=== PATIENT | female | born 1980 | race Caucasian/White ===

== ENCOUNTER 2024-04-15 22:34 | Emergency (ER) | payer OTHER, SELFPAY ==
[2024-04-15 22:51] VITALS: BP 170/110; PULSE 115; TEMP 36.8; O2SAT 98; BMI 40.7
--- NOTE | 2024-04-15 22:55 | PC.NURSE ---
this patient complains of abdomen pain onset today around 2:30 pm while sitting at work, she rates her pain 6/10
--- NOTE | 2024-04-15 22:59 | ED.ABDPAIN1 ---
HPI - Abdominal Pain General Chief Complaint: Abdominal Pain Stated Complaint: ABDOMINAL PAIN Time Seen by Provider: 04/15/24 22:41 Source: patient Mode of arrival: walk-in Limitations: no limitations History of Present Illness HPI narrative: This 44-year-old female who has had 2 C-sections otherwise no abdominal surgeries but does have a history of kidney stones presents for evaluation of generalized abdominal pain. She also has some low back pain but thinks this is from the cramping nature from her abdominal pain and muscle spasms in her back. The patient points to her entire abdomen stating that she is having pain that is cramping in nature coming in waves since around 2 PM. She has had some loose stool and nausea but no vomiting. She does take omeprazole on a daily basis. She has not had a fever but has had some chills. She denies any chest pain or shortness of breath. She does not smoke. Related Data Home Medications ?Medication ?Instructions ?Recorded ?Confirmed No Known Home Medications 04/15/24 04/15/24 Allergies Allergy/AdvReac Type Severity Reaction Status Date / Time No Known Drug Allergies Allergy Verified 04/15/24 22:50 Review of Systems ROS Status of ROS 10 or more systems reviewed and unremarkable except as noted in history and below [facility] Medical History (Updated 04/16/24 @ 00:56 by Brooklynn Astudillo MD) IBS (irritable bowel syndrome) ?K58.9 - Irritable bowel syndrome, unspecified (ICD-10) Social History Little interest or pleasure in doing things: not at all Feeling down, depressed, or hopeless: not at all Exam Narrative Exam Narrative: Vital signs and Nursing Notes reviewed: Patient is afebrile, she is tachycardic with a pulse of 115 her blood pressure is elevated at 170/110, she is not hypoxic with pulse ox of 98% on room air General: Awake, alert, oriented, uncomfortable appearing female, she is rubbing her entire abdomen, no respiratory distress, no active vomiting HEENT: Normocephalic atraumatic, mucous membranes are moist and pink, eyes are clear, normal conjunctiva, vision is grossly intact, posterior pharynx is normal in appearance. Neck: Supple, no meningeal signs, no anterior or posterior cervical lymphadenopathy Chest: Lungs are clear to auscultation with good air entry, there is no wheezing rhonchi or rales appreciated no accessory muscle use, patient is speaking in complete sentences-no chest wall tenderness to palpation CVS: Regular rate and rhythm S1-S2, no murmurs rubs or gallops, pulses are brisk and equal bilaterally ABD: Soft, nondistended, diffusely tender, patient localizes to the epigastrium left upper quadrant and left lower quadrant. There is negative McBurney's point tenderness. Negative Rovsing sign. Extremities: Moving all extremities, no lower extremity tenderness or swelling noted, negative Homans' sign, pulses are brisk and equal bilaterally Skin: Normal in appearance without rash,pallor, petechiae or purpura Neuro: No focal deficits Constitutional Vital Signs, click to edit/add: Last Vital Signs Temp 98.3 F 04/16/24 00:18 Pulse 88 04/16/24 00:30 Resp 18 04/16/24 00:30 BP 139/87 04/16/24 00:30 Pulse Ox 100 04/16/24 00:30 O2 Del Method Room Air 04/15/24 22:51 Course Vital Signs Vital signs: Vital Signs Temperature 98.3 F 04/15/24 22:51 Pulse Rate 115 H 04/15/24 22:51 Respiratory Rate 19 04/15/24 22:51 Blood Pressure 170/110 H 04/15/24 22:51 Pulse Oximetry 98 04/15/24 22:51 Oxygen Delivery Method Room Air 04/15/24 22:51 Temperature 98.3 F 04/16/24 00:18 Pulse Rate 88 04/16/24 00:30 Respiratory Rate 18 04/16/24 00:30 Blood Pressure 139/87 04/16/24 00:30 Pulse Oximetry 100 04/16/24 00:30 Oxygen Delivery Method Room Air 04/15/24 22:51 MDM - Abdominal Pain MDM Narrative Medical decision making narrative: This 44-year-old female who has had 2 C-sections otherwise no abdominal surgeries in the past presents for evaluation of lower abdominal pain that started earlier in the day. She has had some soft stool but no bienvenido diarrhea or vomiting. She has not had a fever. Upon arrival she was shaking and pain in her abdomen was diffusely tender with localization in the epigastrium left upper quadrant and left lower quadrant. An IV was placed and she was medicated with IV fluids, Zofran, Toradol and morphine. Routine labs are ordered and are reviewed. Her test is negative. Her white count is mildly elevated at 13.2. Potassium is mildly low at 3.4. Liver function tests are normal. Lipase is normal. On reevaluation she is resting much more comfortably. CT scan of the abdomen pelvis was ordered and shows dilated loops of bowel without signs of bowel obstruction and is otherwise normal. The results of the scan and the patient's labs were discussed with her. She is feeling better at this time. She will be discharged home with a prescription for Zofran and Bentyl after being given a dose of Bentyl in the emergency department. She was encouraged to drink plenty of fluids and return to the emergency department for worsening symptoms, inability to pass gas or have a bowel movement, intractable vomiting, worsening abdominal pain or any concerns. Medical Records Medical records narrative: [place] [address] CT Scan Report Signed Patient: BERTRAND ARZOLA MR#: [id number] : 1980 Acct:[id number] Age/Sex: 44 / F ADM Date: 04/15/24 Loc: ER Attending Dr: Ordering Physician: Brooklynn Astudillo Date of Service: 04/16/24 Procedure(s): CT abdomen pelvis w con Accession Number(s): [id number] cc: MARIELA PRICE ~ [facility] [place] [id number] Patient Name: BERTRAND ARZOLA MRN: [id number] date: 1980 Sex: F Assigned Patient Location: ER Current Patient Location: ER Accession/Order Number: [id number] Exam Date: 04/16/2024 00:01 Report Date: 04/16/2024 00:40 At the request of: BROOKLYNN ASTUDILLO Procedure: CT abdomen pelvis w con EXAMINATION: CT abdomen pelvis w con HISTORY: upper and lower abd pain COMPARISON: No relevant comparison available. TECHNIQUE: Axial, Coronal, and Sagittal images were obtained without and/or with IV contrast as indicated by examination type. Dose reduction techniques were achieved by using automated exposure control and/or adjustment of mA and/or kV according to patient size and/or use of iterative reconstruction technique. FINDINGS: LUNG BASES: No visible pulmonary or pleural disease. LIVER: No enlargement, atrophy, suspicious density, or significant focal lesion. BILIARY: No dilatation or calcification. PANCREAS: No lesion, fluid collection, or abnormal duct dilatation. SPLEEN: No enlargement or focal lesion. ADRENALS: No mass or enlargement. KIDNEYS: No mass, obstruction, or calcification. BOWEL/MESENTERY: Fluid-filled loops of proximal and mid small bowel with some loops distended up to 3.3 cm. Gradual tapering to normal caliber within distal small bowel. No appreciable wall thickening or inflammatory changes. AORTA/VASCULAR: No aneurysm or dissection. RETROPERITONEUM: No mass or adenopathy. LYMPH NODES: No adenopathy. URINARY BLADDER: No visible focal wall thickening, lesion, or calculus. PELVIC ORGANS: No visible mass. Pelvic organs appropriate for patient age. ABDOMINAL WALL: Small fat filled right inguinal hernia without strangulation. BONES: No bony lesion or fracture. OTHER: Negative. CT/CT abdomen pelvis w con IMPRESSION: 1. Fluid-filled mildly distended loops of small bowel without appreciable obstruction. Possible enteritis. Electronically authenticated by: JENNIFER GARCIA Date: 04/16/2024 00:4 Lab Data Labs: Lab Results 04/15/24 Range/Units 23:10 WBC 13.2 H (4.0-11.0) 10^3/uL RBC 4.80 (4.20-5.40) 10^6/uL Hgb 14.2 (12.0-16.0) g/dL Hct 41.2 (36.0-48.0) % MCV 85.8 (81.0-99.0) fL MCH 29.6 (26.7-34.0) pg MCHC 34.5 (29.9-35.2) g/dL RDW 12.4 (11.0-15.0) % Plt Count 318 (150-450) 10^3/uL MPV 9.3 L (9.5-13.5) fL Neut % (Auto) 79.1 H (43.0-75.0) % Lymph % (Auto) 13.8 L (20.5-60.0) % [place] % (Auto) 5.1 (1.7-12.0) % Eos % (Auto) 1.4 (0.9-7.0) % Baso % (Auto) 0.3 (0.2-2.0) % Neut # (Auto) 10.5 H (1.4-6.5) 10^3/uL Lymph # (Auto) 1.8 (1.2-3.8) 10^3/uL [place] # (Auto) 0.7 (0.3-0.8) 10^3/uL Eos # (Auto) 0.2 (0.0-0.7) 10^3/uL Baso # (Auto) 0.0 (0.0-0.1) 10^3/uL Abs Immat Gran (auto) 0.04 H (0.00-0.03) 10^3/uL Imm/Tot Granulo (auto) 0.3 (0.0-0.5) % Sodium 139 (136-145) mmol/L Potassium 3.4 L (3.5-5.1) mmol/L Chloride 104 (98-107) mmol/L Carbon Dioxide 26.5 (21.0-32.0) mmol/L Anion Gap 11.9 BUN 6.0 L (7.0-18.0) mg/dL Creatinine 1.02 (0.55-1.02) mg/dL Est GFR ( Amer) >60 (>=60 mL/min/1.73m^2) Est GFR (Non-Af Amer) 59 L (>=60 mL/min/1.73m^2) BUN/Creatinine Ratio 5.9 Glucose 102 (74-106) mg/dL Lactate 1.7 (0.4-2.0) mmol/L Calcium 9.2 (8.5-10.1) mg/dL Total Bilirubin 0.5 (0.2-1.0) mg/dL AST 21 (15-37) U/L ALT 39 (14-59) U/L Alkaline Phosphatase 110 (46-116) U/L Total Protein 7.4 (6.4-8.2) g/dL Albumin 3.9 (3.4-5.0) g/dL Globulin 3.5 g/dL Albumin/Globulin Ratio 1.1 Lipase 28.0 (16.0-77.0) U/L Serum HCG, Qual Negative (NEGATIVE) Discharge Plan Discharge Chief Complaint: Abdominal Pain Clinical Impression: Abdominal pain, Enteritis Patient Disposition: Home, Self-Care Time of Disposition Decision: 00:56 Condition: Good Prescriptions / Home Meds: No Action No Known Home Medications Print Language: German Instructions: Abdominal Pain (ED), Enteritis (ED) Referrals: MARIELA PRICE [Primary Care Provider] - 1 week
[2024-04-15 23:21] LABS: Basophils Percent Auto 0.3 % (0.2-2.0); Eosinophils Absolute Auto 0.2 10^3/uL (0.0-0.7); Eosinophils Percent Auto 1.4 % (0.9-7.0); Hematocrit 41.2 % (36.0-48.0); Hemoglobin 14.2 g/dL (12.0-16.0); Immature Granulocytes Abs Auto 0.04 10^3/uL (0.00-0.03); Immature Granulocytes Pct Auto 0.3 % (0.0-0.5); Lymphocytes Absolute Auto 1.8 10^3/uL (1.2-3.8); Lymphocytes Percent Auto 13.8 % (20.5-60.0); Mean Corpuscular HGB Conc 34.5 g/dL (29.9-35.2); Mean Corpuscular Hemoglobin 29.6 pg (26.7-34.0); Mean Corpuscular Volume 85.8 fL (81.0-99.0); Mean Platelet Volume 9.3 fL (9.5-13.5); Monocytes Absolute Auto 0.7 10^3/uL (0.3-0.8); Monocytes Percent Auto 5.1 % (1.7-12.0); Neutrophils Absolute Auto 10.5 10^3/uL (1.4-6.5); Neutrophils Percent Auto 79.1 % (43.0-75.0); Platelet Count 318 10^3/uL (150-450); Red Cell Distribution Width 12.4 % (11.0-15.0); White Blood Count 13.2 10^3/uL (4.0-11.0)
[2024-04-15] MEDS: 0.9 % SODIUM CHLORIDE 1,000 ML 1000 ML IV (23:25)
[2024-04-15] MEDS: ONDANSETRON PF 4 MG/2 ML VIAL IV (23:26)
[2024-04-15] MEDS: KETOROLAC TROMETHAMINE 30 MG/ML VIAL IVP (23:26)
[2024-04-15] MEDS: MORPHINE SULFATE 4 MG/ML VIAL IV (23:26)
[2024-04-15 23:37] VITALS: BP 153/99; PULSE 89; O2SAT 96
[2024-04-15 23:37] LABS: Alanine Aminotransferase 39 U/L (14-59); Albumin Globulin Ratio 1.1; Albumin Level 3.9 g/dL (3.4-5.0); Alkaline Phosphatase 110 U/L (46-116); Anion Gap 11.9; Aspartate Amino Transferase 21 U/L (15-37); BUN Creatinine Ratio 5.9; Bilirubin Total 0.5 mg/dL (0.2-1.0); Calcium 9.2 mg/dL (8.5-10.1); Carbon Dioxide 26.5 mmol/L (21.0-32.0); Chloride 104 mmol/L (98-107); Estimated GFR (African America >60 (>=60 mL/min/1.73m^2); Estimated GFR (Non-African Ame 59 (>=60 mL/min/1.73m^2); Globulin 3.5 g/dL; Glucose 102 mg/dL (74-106); Potassium 3.4 mmol/L (3.5-5.1); Sodium 139 mmol/L (136-145); Total Protein 7.4 g/dL (6.4-8.2)
[2024-04-15 23:39] LABS: Lactate/Lactic Acid 1.7 mmol/L (0.4-2.0)
[2024-04-15 23:58] LABS: HCG Qualitative NEGATIVE (NEGATIVE); Internal Control Within Normal Limits
--- NOTE | 2024-04-16 | CT_ITS ---
[address] [address] Patient Name: BERTRAND ARZOLA MRN: [id number] date: 1980 Sex: F Assigned Patient Location: ER Current Patient Location: Accession/Order Number: [id number] Exam Date: 04/16/2024 00:01 Report Date: 04/16/2024 00:40 At the request of: NICHOLE MARKER Procedure: CT abdomen pelvis w con EXAMINATION: CT abdomen pelvis w con HISTORY: upper and lower abd pain COMPARISON: No relevant comparison available. TECHNIQUE: Axial, Coronal, and Sagittal images were obtained without and/or with IV contrast as indicated by examination type. Dose reduction techniques were achieved by using automated exposure control and/or adjustment of mA and/or kV according to patient size and/or use of iterative reconstruction technique. FINDINGS: LUNG BASES: No visible pulmonary or pleural disease. LIVER: No enlargement, atrophy, suspicious density, or significant focal lesion. BILIARY: No dilatation or calcification. PANCREAS: No lesion, fluid collection, or abnormal duct dilatation. SPLEEN: No enlargement or focal lesion. ADRENALS: No mass or enlargement. KIDNEYS: No mass, obstruction, or calcification. BOWEL/MESENTERY: Fluid-filled loops of proximal and mid small bowel with some loops distended up to 3.3 cm. Gradual tapering to normal caliber within distal small bowel. No appreciable wall thickening or inflammatory changes. AORTA/VASCULAR: No aneurysm or dissection. RETROPERITONEUM: No mass or adenopathy. LYMPH NODES: No adenopathy. URINARY BLADDER: No visible focal wall thickening, lesion, or calculus. PELVIC ORGANS: No visible mass. Pelvic organs appropriate for patient age. ABDOMINAL WALL: Small fat filled right inguinal hernia without strangulation. BONES: No bony lesion or fracture. OTHER: Negative. CT/CT abdomen pelvis w con IMPRESSION: 1. Fluid-filled mildly distended loops of small bowel without appreciable obstruction. Possible enteritis. Electronically authenticated by: JENNIFER GARCIA Date: 04/16/2024 00:40
[2024-04-16 00:18] VITALS: BP 156/100; PULSE 94; TEMP 36.8; O2SAT 98
[2024-04-16 00:30] VITALS: BP 139/87; PULSE 88; O2SAT 100
[2024-04-16] MEDS: DICYCLOMINE HCL 10 MG CAPSULE 20 MG PO (01:18)
[2024-04-16 01:21] VITALS: BP 156/108; PULSE 92; O2SAT 100
--- NOTE | 2024-04-16 01:22 | PC.NURSE ---
i gave this patient verbal and paper discharge orders along with 2 Rx, this patient voices yes to understanding these. at time of discharge this patient voices no concerns and shows no signs of distress
== END 2024-04-16 01:24 | disposition home or self-care (01) ==
PROVIDERS: Emergency Provider Emergency Medicine; PCP Family Medicine
DX: K52.9 Noninfective gastroenteritis and colitis, unspecified (principal); R10.84 Generalized abdominal pain; Z87.442 Personal history of urinary calculi
CPT/HCPCS: 36415; 74177; 80053; 81001; 83605; 83690; 84703; 85025; 96374; 96375; 99285; J1885; J2270; J2405; Q9967

== ENCOUNTER 2024-09-12 11:01 | Emergency (ER) | payer OTHER, SELFPAY ==
--- OUTSIDE RECORDS SUMMARY | 2024-09-05 08:30 | XMS_ITS | Encounter Summary ---
Author Organization [facility] Address [address] [place] [address] Care Team Providers Care Paper Cap Machine Operator Name Role Phone Ken Rodgers MD Primary Care Provider + [phone] Reason for Visit * Reason Comments Anxiety Encounter Details Date Type Department Care Team (Late st Contact Info) Description 09/05/2024 8:30 AM EDT Office Visit [facility] [address] [place] [address] Ken Rodgers MD [address] [facility] [address] [place] [address] (Fax) Recurrent major depressive disorder, in partial remission (HCC) (CMS/HCC) (Primary Dx); Persistent disorder of initiating or maintaining sleep Social History Tobacco Use Types Packs/Day Years Used Date Smoking Tobacco: Never Smokeless Tobacco: Never Tobacco Cessation:Counseling Given: Yes Alcohol Use Standard Drinks/Week Comments Yes 1 (1 standard drink = 0.6 oz pur e alcohol) Humiliation, Afraid, Rape, and Kick questionnair e Answer Date Recorded Within the last year, have y ou been afraid of your partner or ex-partner? No 11/14/2022 Within the last year, have y ou been humiliated or emotionally abused in other ways by your partner or ex-partner? No Within the last year, have y ou been kicked, hit, slapped, or otherwise physically hurt by your partner or ex-partner? No 11/14/2022 Within the last year, have y ou been raped or forced to have any kind of sexual activity by your partner or ex-partner? No 11/14/2022 Social Connection and Isolation Panel [NHANES] A nswer Date Recorded In a typical week, how many times do you talk on the phone with family, friends, or neighbors? Patient declined 11/14/2022 How often do you get togethe r with friends or relatives? Patient declined 11/14/2022 How often do you attend baptist or yarsanism serv ices? Patient declined 11/14/2022 Do you belong to any clubs o r organizations such as baptist groups, unions, fraternal or athletic groups, or school groups? Patient declined 11/14/2022 How often do you attend meet ings of the clubs or organizations you belong to? Patient declined 11/14/2022 Are you , , di vorced, , never , or living with a partner? 11/14/2022 AUDIT-C Answer Date Recorded Q1: How often do you have a drink containing alc ohol? 2-4 times a month 11/14/2022 Q2: How many drinks containi ng alcohol do you have on a typical day when you are drinking? 3 or 4 11/14/2022 Q3: How often do you have si x or more drinks on one occasion? Less than monthly 11/14/2022 Overall Financial Resource Strain (CARDIA) Answe r Date Recorded How hard is it for you to pa y for the very basics like food, housing, medical care, and heating? Patient declined 11/14/2022 PHQ-2 Answer Date Recorded Patient Health Questionnaire-2 Score 0 10/19/2022 [facility] - Occupational Stress Questionnaire Answer Date Recorded Do you feel stress - tense, restless, nervous, or anxious, or unable to sleep at night because your mind is troubled all the time - these days? To some extent 11/14/2022 Exercise Vital Sign Answer Date Recorde d On average, how many days pe r week do you engage in moderate to strenuous exercise (like a brisk walk)? 4 days 11/14/2022 On average, how many minutes do you engage in exercise at this level? 60 min 11/14/2022 Hunger Vital Sign Answer Date Recorded Within the past 12 months, y ou worried that your food would run out before you got the money to buy more. Never true 11/15/19 23 Within the past 12 months, t he food you bought just didn't last and you didn't have money to get more. Never true 11/14/2022 PRAPARE - Transportation Answer Date Re corded In the past 12 months, has l ack of transportation kept you from medical appointments or from getting medications? No 10/17 In the past 12 months, has l ack of transportation kept you from meetings, work, or from getting things needed for daily living? No 11/14/2022 Housing Stability Vital Sign Answer Dragan e Recorded In the last 12 months, was t here a time when you were not able to pay the mortgage or rent on time? No 11/14/2022 In the last 12 months, how many places have you lived? 1 11/14/2022 In the last 12 months, was t here a time when you did not have a steady place to sleep or slept in a retirement (including now)? No 11/14/2022 Education Answer Date Recorded What is the highest level of school you have completed or the highest degree you have received? Some college, no degree 11/13/2022 Comments No Sex and Gender Information Value Date Recorded Sex Assigned at Not on file Legal Sex Female 6:38 PM EDT Gender Identity Not on file Sexual Orientation Not on file Occupation Industry Job Start Date Job End Date Works, part-time Not on file Not on file Not on file documented as of this encounter Last Filed Vital Signs Vital Sign Reading Time Taken Comments Blood Pressure - - Pulse - - Temperature - - Respiratory Rate - - Oxygen Saturation - - Inhaled Oxygen Concentration - - Weight 98.4 kg (217 lb) 09/05/2024 8:36 AM EDT Height 160 cm (5' 3 ) 09/05/2024 8:36 AM EDT Body Mass Index 38.44 09/05/2024 8:36 AM EDT documented in this encounter Progress Notes * Ken Rodgers MD - 09/05/2024 8:30 AM EDT Images from the original note were not included. Patient ID: Magdiel Bliss is a 44 y.o. female who presents for: Anxiety Patient is here for evaluation of anxiety. He/She has the following anxiety symptoms: difficulty concentrating, fatigue, feelings of losing control, insomnia, irritable. Onset of symptoms was approximately several years ago. Symptoms have been gradually improving since that time. He/She denies current suicidal and homicidal ideation. Family history significant for no psychiatric illness.Possible organic causes contributing are: none. Previous treatment includes medication Effexor. He/She complains of the following medication side effects: none. Review of Systems She complains of insomnia. She can fall asleep okay but can not maintain sleep in his up multiple times per night. She is also complaining of generalized fatigue and sleepiness. She is also complaining of food cravings. She is giving into these and eating significant amounts of carbohydrates and not exercising. Objective Appearance: Well-groomed, in no acute distress , but appears tired And yawn several times. Abnormal body movements: None Affect: Appropriate and appears to be but constricted Attention: Good Attitude: Cooperative Degree of awareness of surroundings: Grossly within normal limits Impulse control: Appears to be good Insight: Appears to be good Fund of knowledge; adequate Judgment: Appears to be adequate Perceptual disorders: No perceptual disorders noted Psychomotor activity: Within normal range Speech: Clear, normal variability and rate Thought content: Unremarkable 04/27/2022 12:00 PM 05/18/2022 12:00 PM 07/26/2022 12:00 PM 10/20/2022 4:41 PM 10/09/2023 2:30 PM 07/01/2024 8:27 AM 07/31/2024 2:59 PM Vitals BMI 37.73 kg/m2 38.44 kg/m2 38.44 kg/m2 38.44 kg/m2 38.44 kg/m2 38.44 kg/m2 38.44 kg/m2 BSA (m2) 2.07 m2 2.09 m2 2.09 m2 2.09 m2 2.09 m2 2.09 m2 2.09 m2 Systolic 126 Diastolic 70 Height (in) 5' 3 5' 3 5' 3 5' 3 5' 3 5' 3 5' 3 Weight (lb) 213 217 217 217 217 217 217 Visit Report Report Report Report Report No Known Allergies Current Outpatient Medications on File Prior to Visit Medication Sig Dispense Refill clotrimazole (Mycelex) 10 MG mendy Take 1 tablet (10 mg) by mouth in the morning and 1 tablet (10 mg) at noon and 1 tablet (10 mg) in the evening and 1 tablet (10 mg) before bedtime. 120 Mendy 0 hydrOXYzine HCl (Atarax) 25 MG tablet Take 25 mg by mouth every 6 (six) hours if needed for itching. loratadine (Claritin) 10 MG tablet Take 10 mg by mouth in the morning. omeprazole OTC (PriLOSEC OTC) 20 MG EC tablet Take 20 mg by mouth in the morning. Take before meals. Do not crush, chew, or split. . venlafaxine XR (Effexor XR) 75 MG 24 hr capsule Take 1 capsule (75 mg) by mouth Daily For 2 weeks and then 2 capsules daily. Do not crush or chew. 45 capsule 0 No current facility-administered medications on file prior to visit. 1. Recurrent major depressive disorder, in partial remission (HCC) (CMS/HCC) (Primary) Improved on the venlafaxine. She has only been on this dose for a couple of weeks. We have mutuallyagreed to go ahead and continue the current dosing. We will try to get her sleeping and see if thishelps further. She has also started back with her counselor. - venlafaxine XR (Effexor XR) 150 MG 24 hr capsule; Take 1 capsule (150 mg) by mouth Daily Dispense: 90 capsule; Refill: 0 2. Persistent disorder of initiating or maintaining sleep Chronic problem that is certainly impacting her fatigue and her depressive disorder. We discussed several different options. We are going to attempt evening dosing only of buspirone. We talked how to titrate into the dosing. In prescribing a new medication consideration of the following encompasses moderate decision making: the current prescriptions and supplements, the current allergies and medication intolerances, the current medical conditions, and potential drug interactions. Risks, benefits, and reason for starting their medication were discussed. The patient was given a chance to ask questions today and all questions were answered. The patient is to contact us if any other questions arise or if any problems occur with the adjustment in their medication. - busPIRone (Buspar) 7.5 MG tablet; Take 1-2 tablets (7.5-15 mg) by mouth in the evening Dispense: 180 tablet; Refill: 0 documented in this encounter Plan of Treatment Not on file documented as of this encounter Visit Diagnoses Diagnosis Recurrent major depressive disorder, in partial remission (HCC) (CMS/HCC)- Primary Persistent disorder of initiating or maintaining sleep documented in this encounter Care Teams Paper Cap Machine Operator Relationship Specialty Start Date End Date Ken Rodgers MD PCP - General Family Medicine 10/19/22 documented as of this encounter
[2024-09-12] VITALS (27 sets, daily range): BP systolic 128–228; BP diastolic 69–140; PULSE 117–144; TEMP 37.2; O2SAT 96–98; BMI 37.2
--- OUTSIDE RECORDS SUMMARY | 2024-09-12 11:08 | XMS_ITS | Encounter Summary ---
Author Organization [facility] Address [address] [place] [address] Care Team Providers Care Project Inspector Name Role Phone Amanda Tobar Primary Care Provider [phone] Source Comments In the event this information is protected by the Federal Confidentiality of Alcohol and Drug AbusePatient Records regulations: The Federal rules restrict any use of the information to criminally investigate or prosecute any alcohol or drug abuse patient.[facility] Encounter Details Date Type Department Care Team (Late st Contact Info) Description 08/23/2017 Patient Msg Reproductive Endocrinology Infertility [address] [phone] Jessica White, PRESS LEADER [address] [facility], [place], [address] [address] Social History Tobacco Use Types Packs/Day Years Used Date Smoking Tobacco: Never Smokeless Tobacco: Never Alcohol Use Standard Drinks/Week Comments Yes 1 (1 standard drink = 0.6 oz pur e alcohol) Comments Unknown Sex and Gender Information Value Date Recorded Sex Assigned at Not on file Legal Sex Female 10:32 AM EDT Gender Identity Not on file Sexual Orientation Not on file documented as of this encounter Plan of Treatment Not on file documented as of this encounter Visit Diagnoses Not on filedocumented in this encounter Care Teams Project Inspector Relationship Specialty Start Date End Date Amanda Tobar PCP - General Reproductive Endocrinology 05/12/16 documented as of this encounter
--- OUTSIDE RECORDS SUMMARY | 2024-09-12 11:08 | XMS_ITS | Encounter Summary ---
Author Organization [facility] Address [address] [place], [place] [address] Care Team Providers Care Regional Cra Name Role Phone Amanda Tobar Primary Care Provider [phone] Source Comments In the event this information is protected by the Federal Confidentiality of Alcohol and Drug AbusePatient Records regulations: The Federal rules restrict any use of the information to criminally investigate or prosecute any alcohol or drug abuse patient.[facility] Encounter Details Date Type Department Care Team (Latest Contact Info) Description 06/11/2017 Get Medical Advice Reproductive Endocrinology Infertility [id number] [place] [phone] Amanda Tobar [address] [place] [phone] RE: Non-Urgent Medical Question Social History Tobacco Use Types Packs/Day Years [...] on filedocumented in this encounter Care Teams Regional Cra Relationship Specialty Start Date End Date Amanda Tobar PCP - General Reproductive Endocrinology 05/12/16 documented as of this encounter
--- OUTSIDE RECORDS SUMMARY | 2024-09-12 11:08 | XMS_ITS | Encounter Summary ---
Author Organization [facility] Address [address] [place] [address] Care Team Providers Care Package Winder Name Role Phone Juan Miguel Stallworth MD Primary Care Provider [phone] Amanda Tobar Primary Care Provider [phone] Source Comments In the event this information is protected by the Federal Confidentiality of Alcohol and Drug AbusePatient Records regulations: The Federal rules restrict any use of the information to criminally investigate or prosecute any alcohol or drug abuse patient.[facility] Encounter Details Date Type Department Care Team (Late st Contact Info) Description 01/01/2016 Patient Msg Medical Records [address] [place] [address] Provider, Ccf letrozole Social History Tobacco Use Types Packs/Day Years [...] on filedocumented in this encounter Care Teams Package Winder Relationship Specialty Start Date End Date Juan Miguel Stallworth MD [address] [place] [address] PCP - General Family Medicine 10/14/15 05/11/16 Amanda Tobar [address] [place] [address] PCP - General Reproductive Endocrinology 05/12/16 documented as of this encounter
--- OUTSIDE RECORDS SUMMARY | 2024-09-12 11:08 | XMS_ITS | Encounter Summary ---
Author Organization [employer] Address [id number] [address] [place] [address] Care Team Providers Care Laboratory Analyst Name Role Phone Ken Rodgers MD Primary Care Provider + [phone] Reason for Visit * Reason Comments Med Refill Encounter Details Date Type Department Care Team (Late st Contact Info) Description 06/22/2018 Refill [facility] [address] [place] [address] Roberta Blankenship MD [address] [place] [address] Irregular menses (Primary Dx) Social History Tobacco Use Types Packs/Day Years Used Date Smoking Tobacco: Never Smokeless Tobacco: Never Alcohol Use Standard Drinks/Week Comments Yes 0 (1 standard drink = 0.6 oz pur e alcohol) socially Comments No Sex and Gender Information Value Date Recorded Sex Assigned at Not on file Legal Sex Female 3:33 AM EST Gender Identity Not on file Sexual Orientation Not on file documented as of this encounter Miscellaneous Notes * Telephone Encounter - LUIS DANIEL Terrazas - 06/22/2018 8:19 AM EST Left message for pt to call back about increase in dosage. Script sent to pharmacy LUIS DANIEL Terrazas 06/25/18 0852 documented in this encounter Plan of Treatment Not on file documented as of this encounter Visit Diagnoses Diagnosis Irregular menses- Primary Irregular menstrual cycle documented in this encounter Additional Health Concerns Assessment Noted Time A Body Mass Index follow-up plan has been documented for the patient 02/28/2018 9:10 AM EST documented as of this encounter Care Teams Laboratory Analyst Relationship Specialty Start Date End Date Ken Rodgers MD PCP - General 02/22/18 documented as of this encounter
--- OUTSIDE RECORDS SUMMARY | 2024-09-12 11:08 | XMS_ITS | Encounter Summary ---
Author Organization [facility] Address [address] [place] [address] Care Team Providers Care Parts Fabricator Name Role Phone Ken Rodgers MD Primary Care Provider + [phone] Encounter Details Date Type Department Care Team (Late st Contact Info) Description 09/11/2024 Telephone [facility] [address] [place] [address] Ken Rodgers MD [address] [place] [address] Social History Tobacco Use Types Packs/Day Years [...] declined 11/14/2022 How often do you attend orthodoxy or cheondoism serv ices? Patient declined 11/14/2022 Do you belong to any clubs o r organizations such as orthodoxy groups, unions, fraternal or athletic groups, or [...] Recorded Patient Health Questionnaire-2 Score 0 10/19/2022 [facility] - Occupational Stress Questionnaire Answer Date Recorded [...] place to sleep or slept in a correction (including now)? No 11/14/2022 Education Answer Date [...] encounter Miscellaneous Notes * Telephone Encounter - Lady Castillo MA - 09/11/2024 9:20 AM EDT Spoke to pt, she is tolerating. She will increase to 4 tablets and update us on Monday * Telephone Encounter - Ken Rodgers MD - 09/11/2024 8:34 AM EDT By now she should be up to 2 tablets in the evening. If she is tolerating the medication well but it is not helping she can go ahead and Double the dose, increasing to 4 tablets which would be the maximum dose. She should be able to tell in just a couple nights. Give us an update Monday. * Telephone Encounter - Amanda Nieves - 09/11/2024 8:20 AM EDT Magdiel called. She stated that Dr. Rodgers had started her on a new medication busPIRone (Buspar) 7.5 MG to help with her sleeping. She stated Dr. Rodgers did tell her it might take a few weeks to kick in. She stated that she is really struggling and only sleeping a few hours at a time and is up several times a night and that it is effecting her work. She is asking if there is anything else she can do until this medication kicks in? She is feeling drained and exhausted. documented in this encounter Plan of Treatment Not on file documented as of this encounter Visit Diagnoses Diagnosis Persistent disorder of initiating or maintaining sleep documented in this encounter Care Teams Parts Fabricator Relationship Specialty Start Date End Date Ken Rodgers MD PCP - General Family Medicine 10/19/22 documented as of this encounter
--- OUTSIDE RECORDS SUMMARY | 2024-09-12 11:08 | XMS_ITS | Encounter Summary ---
Author Organization [facility] Address [address] [place] [address] Care Team Providers Care Front Desk Auxiliary Name Role Phone Ken Rodgers MD Unavailable [phone] Ken Rodgers MD Primary Care Provider [phone] Encounter Details Date Type Department Care Team (Late st Contact Info) Description 01/13/2023 Abstract [facility] [address] [place] [address] Ken Rodgers MD [address] [facility] [address] [place] [address] (Fax) Social History Tobacco Use Types Packs/Day Years [...] declined 11/14/2022 How often do you attend confucianism or amish serv ices? Patient declined 11/14/2022 Do you belong to any clubs o r organizations such as confucianism groups, unions, fraBrainscape or athletic groups, or school groups? Patient [...] Recorded Patient Health Questionnaire-2 Score 0 10/19/2022 [facility]ational Stress Questionnaire Answer [...] place to sleep or slept in a assisted (including now)? No 11/14/2022 Education Answer Date [...] on filedocumented in this encounter Care Teams Front Desk Auxiliary Relationship Specialty Start Date End Date Ken Rodgers MD [address] [address] PCP - Celine Stevens 07/16/21 Ken Rodgers MD [address] [address] PCP - General Family Medicine 10/19/22 documented as of this encounter
--- OUTSIDE RECORDS SUMMARY | 2024-09-12 11:08 | XMS_ITS | Clinical Summary ---
Author Organization [facility] Address [address] [place] [address] Phone Care Team Providers Care Pododermatologist Name Role Phone Unavailable Primary Care Provider Unavailabl e Social History Tobacco Use Types Packs/Day Years Used Date Smoking Tobacco: Never Assessed Comments Unknown Sex and Gender Information Value Date Recorded Sex Assigned at Not on file Legal Sex Female 3:05 PM EST Gender Identity Not on file Sexual Orientation Not on file Plan of Treatment Not on file
--- OUTSIDE RECORDS SUMMARY | 2024-09-12 11:08 | XMS_ITS | Encounter Summary ---
Author Organization [facility] Address [address] [place] [address] Care Team Providers Care Unit Manager Rn Name Role Phone Ken Rodgers MD Primary Care Provider + [phone] Encounter Details Date Type Department Care Team (Latest Contact Info) Description 09/05/2024 Travel Social History Tobacco Use Types Packs/Day Years [...] declined 11/14/2022 How often do you attend rastafarian or shinto serv ices? Patient declined 11/14/2022 Do you belong to any clubs o r organizations such as rastafarian groups, unions, fraternal or athletic groups, or [...] Recorded Patient Health Questionnaire-2 Score 0 10/19/2022 [facility] - Occupational Stress Questionnaire Answer Date Recorded [...] place to sleep or slept in a fpc (including now)? No 11/14/2022 Education Answer Date [...] on filedocumented in this encounter Care Teams Unit Manager Rn Relationship Specialty Start Date End Date Ken Rodgers MD PCP - General Family Medicine 10/19/22 documented as of this encounter
--- OUTSIDE RECORDS SUMMARY | 2024-09-12 11:08 | XMS_ITS | Encounter Summary ---
Author Organization [facility] Address [address] [place], [place] [address] Care Team Providers Care Parts Counter Specialist Name Role Phone Amanda Tobar Primary Care Provider Source Comments In the event this information is protected by the Federal Confidentiality of Alcohol and Drug AbusePatient Records regulations: The Federal rules restrict any use of the information to criminally investigate or prosecute any alcohol or drug abuse patient.[facility] Encounter Details Date Type Department Care Team (Latest Contact Info) Description 07/18/2016 Get Medical Advice Reproductive Endocrinology Infertility [address] [phone] Amanda Tobar [address] [place] [phone] RE: Visit Follow Up Question Social History Tobacco Use Types Packs/Day [...] on filedocumented in this encounter Care Teams Parts Counter Specialist Relationship Specialty Start Date End Date Amanda Tobar PCP - General Reproductive Endocrinology 05/12/16 documented as of this encounter
--- OUTSIDE RECORDS SUMMARY | 2024-09-12 11:08 | XMS_ITS | Encounter Summary ---
Author Organization [facility] Address [address] [place], [place] [address] Care Team Providers Care Label Operator Name Role Phone Amanda Tobar Primary Care Provider [phone] Source Comments In the event this information is protected by the Federal Confidentiality of Alcohol and Drug AbusePatient Records regulations: The Federal rules restrict any use of the information to criminally investigate or prosecute any alcohol or drug abuse patient.[facility] Encounter Details Date Type Department Care Team (Latest Contact Info) Description 08/04/2017 Get Medical Advice Reproductive Endocrinology Infertility [address] [phone] Amanda Tobar [address] [place] [phone] RE: Non-Urgent Medical Question Social History Tobacco [...] on filedocumented in this encounter Care Teams Label Operator Relationship Specialty Start Date End Date Amanda Tobar PCP - General Reproductive Endocrinology 05/12/16 documented as of this encounter
--- OUTSIDE RECORDS SUMMARY | 2024-09-12 11:08 | XMS_ITS | Encounter Summary ---
Author Organization [facility] Address [address] [place] [address] Care Team Providers Care Dust Collector Operator Name Role Phone Juan Miguel Stallworth MD Primary Care Provider [phone] Amanda Tobar Primary Care Provider [phone] Source Comments In the event this information is protected by the Federal Confidentiality of Alcohol and Drug AbusePatient Records regulations: The Federal rules restrict any use of the information to criminally investigate or prosecute any alcohol or drug abuse patient.[facility] Encounter Details Date Type Department Care Team (Late st Contact Info) Description 04/22/2016 Patient Msg Medical Records [address] [place] [address] Provider, Ccf Plan for Letrozole Social History Tobacco Use Types Packs/Day Years [...] on filedocumented in this encounter Care Teams Dust Collector Operator Relationship Specialty Start Date End Date Juan Miguel Stallworth MD [address] [place] [address] PCP - General Family Medicine 10/14/15 05/11/16 Amanda Tobar [address] [place] [address] PCP - General Reproductive Endocrinology 05/12/16 documented as of this encounter
--- OUTSIDE RECORDS SUMMARY | 2024-09-12 11:08 | XMS_ITS | Encounter Summary ---
Author Organization [facility] Address [address] [place] [address] Care Team Providers Care Tip Inserter Name Role Phone Ken Rodgers MD Primary Care Provider [phone] Encounter Details Date Type Department Care Team (Late st Contact Info) Description 09/05/2024 Bamboo flowsheet [facility] [address] [place] [address] Ken Rodgers MD [address] [place] [address] Social History Tobacco Use Types Packs/Day Years [...] declined 11/14/2022 How often do you attend gnosticism or baptism serv ices? Patient declined 11/14/2022 Do you belong to any clubs o r organizations such as gnosticism groups, unions, fraternal or athletic groups, or [...] Recorded Patient Health Questionnaire-2 Score 0 10/19/2022 [facility] - Occupational Stress Questionnaire Answer Date [...] on filedocumented in this encounter Care Teams Tip Inserter Relationship Specialty Start Date End Date Ken Rodgers MD PCP - General Family Medicine 10/19/22 documented as of this encounter
--- OUTSIDE RECORDS SUMMARY | 2024-09-12 11:09 | XMS_ITS | Clinical Summary ---
Author Organization [employer] Address [id number] [address] [place] [address] Care Team Providers Care Cigarette Machine Filler Name Role Phone Ken Rodgers MD Primary Care Provider + [phone] Allergies No known active allergies Medications ALPRAZolam (XANAX) 0.25 mg tablet Take 0.5 mg by mouth nightly as needed for anxiety. Active busPIRone (BUSPAR) 15 mg tablet Take 15 mg by mouth 2 (two) times a day. Active DULoxetine (CYMBALTA) 20 mg capsule Take 20 mg by mouth 2 (two) times a day. Active Active Problems No known active problems Family History Medical History Relation Name Comments No Known Problems Father No Known Problems Mother Breast cancer Neg Hx Cancer Neg Hx Colon cancer Neg Hx Diabetes Neg Hx Hypertension Neg Hx Ovarian cancer Neg Hx Stroke Neg Hx Relation Name Status Comments Father Alive Mother Alive Social History Tobacco Use Types Packs/Day Years Used Date Smoking Tobacco: Never Smokeless Tobacco: Never Tobacco Cessation:Counseling Given: Not Answered Alcohol Use Standard Drinks/Week Comments Yes 0 (1 standard drink = 0.6 oz pur e alcohol) occassionally PHQ-2 Answer Date Recorded Total Score 0 01/10/2023 Childcare Answer Date Recorded Childcare Unknown 09/24/2018 Employment Answer Date Recorded Employment Unknown 09/24/2018 Hunger Screening Answer Date Recorded Within the past 12 months we worried whether our food would run out before we got money to buy more. Never True 01/10/2023 Within the past 12 months th e food we bought just didn't last and we didn't have money to get more. Never True 01/10/2023 Purpose - Life Answer Date Recorded Purpose and direction in life Unknown Comments No Sex and Gender Information Value Date Recorded Sex Assigned at Not on file Legal Sex Female 3:33 AM EST Gender Identity Not on file Sexual Orientation Not on file Last Filed Vital Signs Vital Sign Reading Time Taken Comments Blood Pressure 152/100 01/10/2023 3:32 PM EDT Pulse - - Temperature - - Respiratory Rate - - Oxygen Saturation - - Inhaled Oxygen Concentration - - Weight 101 kg (222 lb 9.6 oz) 01/10/2023 3:32 PM EDT Height 160 cm (5' 3 ) 01/10/2023 3:32 PM EDT Body Mass Index 39.43 01/10/2023 3:32 PM EDT Plan of Treatment Health Maintenance Due Date Last Done Comments DTaP,Tdap and Td Vaccines (1 - Tdap) 01/04/2000 Adult BMI Screening 01/11/2024 01/10/2023 Depression Screening 01/11/2024 01/10/2023 Tobacco Screening 01/11/2024 01/10/2023 Influenza Vaccine 12/16/2024 Pap Smear 01/10/2026 01/10/2023, 12/17, 02/22/2018, Additional history exists Medical Devices Not on file Procedures Procedure Name Priority Date/Time Associated Diagnosis Comments PAP SMEAR Routine 01/10/2023 7:50 AM EDT Cervical smear, as part of routine gynecological examination from Last 3 Months or Most Recently Relevant to Health Maintenance Results * Pap Smear (01/10/2023 7:50 AM EDT) 01/10/2023 7:50 AM EDT 01/10/2023 7:54 AM EDT Narrative COPATH - 01/13/2023 2:48 PM EDT [facility] [address] [place] [address] Gynecologic Cytology Consultation Patient Name:BERTRAND BLISS:1980 (Age: 43)Gender:FTaken:01/10/2023Reported:3Physician(s):Emilia Bhandari DO ([phone])Copy To: Rec. #:[id number]: #[id number] Final Cytologic Interpretation ThinPrep Pap Test (Cervical): Satisfactory for evaluation. A transformation zone component is present. NEGATIVE FOR INTRAEPITHELIAL LESION OR MALIGNANCY. [facility] [place] Interpretation performed at [facility], [address] [place] [address], License number: [id number]. Electronically Signed Out By JOHN Fofana(ASCP) Date of Last Menstrual Period: 12/24/22 Other Clinical Conditions: Z01.419 Rail Walker exam wo/abn findings Source of Specimen ThinPrep Pap Test (Cervical) Thin Prep Pap (REGULATOR ASSEMBLER) Fee Code(s): G0145 us Emilia Bhandari DO PATHOLOGY/CYTOLOGY ORDERABLES Final Result COPATH from Last 3 Months or Most Recently Relevant to Health Maintenance Insurance [employer] Care Teams Cigarette Machine Filler Relationship Specialty Start Date End Date Ken Rodgers MD PCP - General 02/22/18
--- OUTSIDE RECORDS SUMMARY | 2024-09-12 11:09 | XMS_ITS | Clinical Summary ---
Author Organization [facility] Address [address] [place], [place] [address] Care Team Providers Care Director Of Archives Name Role Phone Amadou Amanda Primary Care Provider [phone] Allergies No known active allergies Medications PNV95/FERROUS FUMARATE/FA ( ORAL) Take by mouth once daily. Active letrozole (FEMARA) 2.5 mg tablet Take 1 tab by mouth cycle day 3-7. 5 tablet 2 7 Active progesterone micronized (PROMETRIUM) 200 mg capsule Take 1 tab vaginally in the AM and PM 7 Active Family History Medical History Relation Comments GI Brother 1 IBS Headache Brother 2 GI Father IBS Thyroid Father Diabetes Maternal Grandmother Heart Paternal Grandfather Hypertension Paternal Grandfather Arthritis Paternal Grandmother Headache Sister Relation Status Comments Brother 1 Brother 2 Father Maternal Grandmother Paternal Grandfather Paternal Grandmother Sister Social History Tobacco Use Types Packs/Day Years [...] Sign Reading Time Taken Comments Blood Pressure 120/80 05/12/2016 11:55 AM EST Pulse 111 12/31/2015 4:11 PM EDT Temperature - - Respiratory Rate - - Oxygen Saturation - - Inhaled Oxygen Concentration - - Weight 86.6 kg (191 lb) 12/31/2015 4:11 PM EDT Height 160 cm (5' 3 ) 12/07/2015 10:52 AM EDT Body Mass Index 33.83 12/07/2015 10:52 AM EDT Plan of Treatment Health Maintenance Due Date Last Done Comments Anxiety Screening 1999 Depression Screening 1999 HIV Screening 1999 Hepatitis C Screening 1999 DTaP,Tdap,Td Vaccine (1 - Tdap) 01/04/2000 Hepatitis B Vaccine (1 of 3 - 19+ 3-dose series) 01/03 Cervical Cancer Screening 2002 Mammogram Screening 2021 Covid-19 Vaccine ( - 2023- season) 2023 Influenza Vaccine (Season Ended) 2024 Insurance [employer] Care Teams Director Of Archives Relationship Specialty Start Date End Date Amanda Tobar PCP - General Reproductive Endocrinology 05/12/16
--- OUTSIDE RECORDS SUMMARY | 2024-09-12 11:10 | XMS_ITS | CCD ---
Author Organization [facility] Inform ion Partnership [facility] Care Team Providers Care Central Office Associate Name Role Phone NELSON, DR GARCIA Admitting Unavailable NELSON, DR GARCIA Attending Unavailable DEE ., DR SIERRA Primary Care Unavailable NELSON, DR GARCIA Consulting Unavailable Dee GREGORIO, Ken Rich Primary Care Provider [phone] KEN PRICE Attending Unavailable KEN PRICE Attending Unavailable KEN PRICE Attending Unavailable KEN PRICE Attending Unavailable Medications Current Medications Medication Drug Class(es) Dates Sig (Normalized) Sig (Original) clotrimazole 10 mg oral lozenge (2 sources) Azole Antifungal Start: 07-31-2024 End: 08-30-2024 clotrimazole (Mycelex) 10 MG mendy Indications: Thrush Take 1 tablet (10 mg) by mouth in the morning and 1 tablet (10 mg) at noon and 1 tablet (10 mg) in the evening and 1 tablet (10 mg) before bedtime. 120 Mendy 07/31/2024 08/30/2024 Active hydrOXYzine hydrochloride 25 mg oral tablet (3 sources) Antihistamine Start: 10-21-2021 take 1 tablet by mouth every six hours as needed hydrOXYzine HCl (Atarax) 25 MG tablet Take 25 mg by mouth every 6 (six) hours if needed for itching. 10/21/2021 Active loratadine 10 mg oral tablet (3 sources) Start: 05-18-2022 take 1 tablet by mouth in the morning loratadine (Claritin) 10 MG tablet Take 10 mg by mouth in the morning. 05/18/2022 Active omeprazole 20 mg delayed release oral tablet (3 sources) Proton Pump Inhibitor take 1 tablet by mouth before mealtime omeprazole OTC (PriLOSEC OTC) 20 MG EC tablet Indications: Heartburn Take 20 mg by mouth in the morning. Take before meals. Do not crush, chew, or split. . Active 24 hr venlafaxine 75 mg extended release oral capsule (2 sources) Serotonin and Norepinephrine Reuptake Inhibitor Start: 07-31-2024 End: 08-30-2024 take 1 capsule by mouth once daily, then take 2 capsules by mouth once daily venlafaxine XR (Effexor XR) 75 MG 24 hr capsule Indications: Recurrent major depressive disorder, in partial remission (HCC) (CMS/HCC) Take 1 capsule (75 mg) by mouth Daily For 2 weeks and then 2 capsules daily. Do not crush or chew. 45 capsule 07/31/2024 08/30/2024 Active Completed/Discontinued Medications Medication Drug Class(es) Dates Sig (Normalized) Sig (Original) DULoxetine 20 mg delayed release oral capsule (3 sources) Serotonin and Norepinephrine Reuptake Inhibitor Start: 07-01-2024 End: 07-31-2024 DULoxetine (Cymbalta) [address] capsule Indications: Recurrent major depressive disorder, in partial remission (HCC) (CMS/HCC) Do not crush or chew. Take 1 capsule in the AM for 2 weeks, then increase to 2 capsules in the AM 60 capsule 5 07/01/2024 07/31/2024 Discontinued (Side effects) Problems Active Problems Problem Classification Problem Date Documented Da te Episodic/Chronic Anxiety disorders (5 sources) Mixed anxiety and depressive disorder; Translations: [Other specified anxiety disorders] Onset: 10-19-2022 10-19-2022 Chronic Chronic kidney disease (3 sources) Chronic kidney disease stage 2; Translations: [Chronic kidney disease, stage 2 (mild)] Onset: 10-19-2022 10-19-2022 Chronic Esophageal disorders (3 sources) Gastro-esophageal reflux disease with esophagitis; Translations: [Gastroesophageal reflux disease with esophagitis without hemorrhage] Onset: 10-19-2022 10-19-2022 Chronic Malaise and fatigue (3 sources) Fatigue; Translations: [Chronic fatigue, unspecified] Onset: 10-19-2022 10-19-2022 Chronic Mood disorders (5 sources) Recurrent major depression in partial remission; Translations: [Major depressive disorder, recurrent, in partial remission] Onset: 07-05-2023 07-05-2023 Chronic Mycoses (2 sources) Candidiasis of mouth; Translations: [Candidal stomatitis] 08-05-2024 Episodic Other nutritional; endocrine; and metabolic disorders (3 sources) Morbid obesity; Translations: [Morbid (severe) obesity due to excess calories] Onset: 10-19-2022 10-19-2022 Chronic Residual codes; unclassified (5 sources) Persistent insomnia; Translations: [Insomnia, unspecified] Onset: 10-19-2022 10-19-2022 Episodic Thyroid disorders (6 sources) Anthony thyroiditis; Translations: [Autoimmune thyroiditis] Onset: 10-19-2022 10-19-2022 Chronic Past or Other Problems Problem Classification Problem Date Documented Da te Episodic/Chronic Spondylosis; intervertebral disc disorders; other back problems (3 sources) Lumbar radiculopathy; Translations: [Radiculopathy, lumbar region] Onset: 10-19-2022 10-19-2022 Episodic Results Test Name Value Interpretation Reference Range Facil ity BOX TEST SENT OUTon 06-21-19 SENT TO REF LAB 06/20/2022 Normal [facility] Comment on above: Performed By: #### B OX #### [facility] [address] [place] [address] Dr. [facility] P[facility] 03-24-2021 Albumin [Mass/Vol] 4.5 g/dL Normal 3.6-5.1 Jorge [facility] Staff Physical Therapist Comment on above: Order Comment: [facility] Testing performed at: [facility], [address] [place] [address], [address] [place] [address], [phone], Community Mental Health Worker: Rodrigo Krishna MD [facility] Collection Date/Time: [facility] Results Received Date/Time: [facility] Reported Date/Time: Performed By: #### C MP, LIPD #### [facility] Default [address] [place] [id number] Albumin/Globulin [Mass ratio] 1.8 {ratio} Normal 1.0-2.5 [facility] Staff Physical Therapist Comment on above: Order Comment: [facility] performed at: [facility], [address] [place] [address], [address] [place] [address], [address] [place] [address], Community Mental Health Worker: Rodrigo Krishna MD [facility] Date/Time: [facility] Results Received Date/Time: [facility] Reported Date/Time: Performed By: #### C MP, LIPD #### [facility] Default [address] [place] [address] ALP [Catalytic activity/Vol] 84 U/L Normal 31-[address] [facility] Specialist Comment on above: Order Comment: [facility] performed at: [place], [address] [place] [address], [address] [place] [address], [address] [place] [address], Community Mental Health Worker: Rodrigo Krishna MD [facility] Date/Time: [facility] Results Received Date/Time: [facility] Reported Date/Time: Performed By: #### C MP, LIPD #### [facility] Default [address] [place] [address] ALT [Catalytic activity/Vol] 20 U/L Normal 6-29 [facility] Staff Physical Therapist Comment on above: Order Comment: [facility] performed at: [place], [address] [place] [address], [address] [place] [address], [address] [place] [address], Community Mental Health Worker: Rodrigo Krishna MD [facility] Date/Time: [facility] Results Received Date/Time: [facility] Reported Date/Time: Performed By: #### C MP, LIPD #### [facility] Default [address] [place] [address] Anion gap [Moles/Vol] 14 mmol/L Normal 12-20 [facility] Staff Physical Therapist Comment on above: Order Comment: [facility] performed at: [place], [address] [place] [address], [address] [place] [address], [address] [place] [address], Community Mental Health Worker: Rodrigo Krishna MD [facility] Date/Time: [facility] Results Received Date/Time: [facility] Reported Date/Time: Result Comment: Effe ctive 04/22/2019 reference range changed. Performed By: #### C MP, LIPD #### [facility] Default [address] [place] [address] AST [Catalytic activity/Vol] 16 U/L Normal 10-30 [facility] Comment on above: Order Comment: [facility] performed at: [place], [address] [facility], [address] [place] [address], [address] [place] [address], Community Mental Health Worker: Rodrigo Krishna MD [facility] Date/Time: [facility] Results Received Date/Time: [facility] Reported Date/Time: Performed By: #### C MP, LIPD #### [facility] Default [address] [place] [address] Bilirubin [Mass/Vol] 0.4 mg/dL Normal 0.2-1.2 [facility] Comment on above: Order Comment: [facility] performed at: [place], [address] [facility], [address] [place] [address], [address] [place] [address], Community Mental Health Worker: Rodrigo Krishna MD [facility] Date/Time: [facility] Results Received Date/Time: [facility] Reported Date/Time: Performed By: #### C MP, LIPD #### [facility] Default [address] [place] [address] BUN/CREA 10 NOT APPLICABLE Normal 6-22 [facility] Comment on above: Order Comment: [facility] performed at: [place], [address] , [address] [place] [address], [phone], Community Mental Health Worker: Rodrigo Krishna MD [facility] Date/Time: [facility] Results Received Date/Time: [facility] Reported Date/Time: Performed By: #### C MP, LIPD #### [facility] Default [address] [place] [address] Calcium [Mass/Vol] 9.2 mg/dL Normal 8.6-10.2 [facility] Specialist Comment on above: Order Comment: [facility] performed at: [place], [address] [place] [address], [address] [place] [address], [address] [place] [address], Community Mental Health Worker: Rodrigo Krishna MD [facility] Date/Time: [facility] Results Received Date/Time: [facility] Reported Date/Time: Performed By: #### C VAIBHAV, LIPD #### [facility] Default [address] [place] [address] Chloride [Moles/Vol] 107 mmol/L Normal 98-110 [facility] Staff Physical Therapist Comment on above: Order Comment: [facility] performed at: [place], [address] [place] [address], [address] [place] [address], [address] [place] [address], Community Mental Health Worker: Rodrigo Krishna MD [facility] Date/Time: [facility] Results Received Date/Time: [facility] Reported Date/Time: Performed By: #### C VAIBHAV, LIPD #### [facility] [address] [place] [address] CO2 [Moles/Vol] 24 mmol/L Normal 20-32 [facility] Staff Physical Therapist Comment on above: Order Comment: [facility] performed at: [place], [address] [place] [address], [address] [place] [address], [phone], Community Mental Health Worker: Rodrigo Krishna MD [facility] Date/Time: [facility] Results Received Date/Time: [facility] Reported Date/Time: Performed By: #### C VAIBHAV, LIPD #### [facility] Default [address] [place] [address] Creatinine [Mass/Vol] 0.88 mg/dL Normal 0.50-1.10 [facility] Staff Physical Therapist Comment on above: Order Comment: [facility] performed at: [place], [address] [place] [address], [address] [place] [address], [address] [place] [address], Community Mental Health Worker: Rodrigo Krishna MD [facility] Date/Time: [facility] Results Received Date/Time: [facility] Reported Date/Time: Performed By: #### C MP, LIPD #### [facility] Default [address] [place] [address] eGFRAA 86 mL/min/1.73m2 Normal > OR = 60 [facility] Staff Physical Therapist Comment on above: Order Comment: [facility] performed at: [place], [address] [place] [address], [address] [place] [address], [address] [place] [address], Community Mental Health Worker: Rodrigo Krishna MD [facility] Date/Time: [facility] Results Received Date/Time: [facility] Reported Date/Time: Performed By: #### C VAIBHAV, LIPD #### [facility] Default [address] [place] [address] eGFRNAA 71 mL/min/1.73m2 Normal > OR = 60 [facility] Staff Physical Therapist Comment on above: Order Comment: [facility] performed at: [place], [address] [place] [address], [address] [place] [address], [address] [place] [address], Community Mental Health Worker: Rodrigo Krishna MD [facility] Date/Time: [facility] Results Received Date/Time: [facility] Reported Date/Time: Performed By: #### C VAIBHAV, LIPD #### [facility] [address] [place] [address] Globulin (S) [Mass/Vol] 2.5 g/dL Normal 1.9-3.7 [facility] Staff Physical Therapist Comment on above: Order Comment: [facility] performed at: [place], [address] [place] [address], [address] [place] [address], [address] [place] [address], Community Mental Health Worker: Rodrigo Krishna MD [facility] Date/Time: [facility] Results Received Date/Time: [facility] Reported Date/Time: Performed By: #### C MP, LIPD #### [facility] Default [address] [place] [address] Glucose [Mass/Vol] 99 mg/dL Normal 65-99 Jorge [facility] Staff Physical Therapist Comment on above: Order Comment: [facility] performed at: [place], [address] [place] [address], [address] [place] [address], [phone], Community Mental Health Worker: Rodrigo Krishna MD [facility] Date/Time: [facility] Results Received Date/Time: [facility] Reported Date/Time: Result Comment: Fasting reference interval Performed By: #### C VAIBHAV, LIPD #### [facility] Default [address] [place] [address] Potassium [Moles/Vol] 3.7 mmol/L Normal 3.5-5.3 [facility] Staff Physical Therapist Comment on above: Order Comment: [facility] performed at: [facility], [address] [place] [address], [address] [place] [address], [address] [place] [address], Community Mental Health Worker: Rodrigo Krishna MD [facility] Date/Time: [facility] Results Received Date/Time: [facility] Reported Date/Time: Performed By: #### C VAIBHAV, LIPD #### [facility] Default [address] [place] [address] Protein [Mass/Vol] 7.0 g/dL Normal 6.1-8.1 [facility] The[facility] Comment on above: Order Comment: [facility] performed at: [facility], [address] [place] [address], [address] [place] [address], [phone], Community Mental Health Worker: Rodrigo Krishna MD [facility] Date/Time: [facility] Results Received Date/Time: [facility] Reported Date/Time: Performed By: #### C MP, LIPD #### [facility] Default [address] [place] [address] Sodium [Moles/Vol] 141 mmol/L Normal 135-146 [facility] Specialist Comment on above: Order Comment: [facility] performed at: [place], [address] [place] [address], [address] [place] [address], [phone], Community Mental Health Worker: Rodrigo Krishna MD [facility] Date/Time: [facility] Results Received Date/Time: [facility] Reported Date/Time: Performed By: #### C MP, LIPD #### [facility] Default [address] [place] [address] Urea nitrogen [Mass/Vol] 9 mg/dL Normal 7-25 [facility] Staff Physical Therapist Comment on above: Order Comment: [facility] performed at: [place], [address] [place] [address], [address] [place] [address], [phone], Community Mental Health Worker: Rodrigo Krishna MD [facility] Date/Time: [facility] Results Received Date/Time: [facility] Reported Date/Time: Performed By: #### C MP, LIPD #### [facility] Default [address] [place] [address] Lipid Panelon 03-24-2021 Cholesterol [Mass/Vol] 224 mg/dL High <200 [facility] Staff Physical Therapist Comment on above: Order Comment: [facility] performed at: [place], [address] [place] [address], [address] [place] [address], [phone], Community Mental Health Worker: Rodrigo Krishna MD [facility] Date/Time: [facility] Results Received Date/Time: [facility] Reported Date/Time: Performed By: #### C MP, LIPD #### [facility] Default [address] [place] [address] Cholesterol in HDL [Mass/Vol] 56 mg/dL Normal > OR = 50 [facility] Staff Physical Therapist Comment on above: Order Comment: [facility] performed at: [place], [address] [place] [address], [address] [place] [address], [phone], Community Mental Health Worker: Rodrigo Krishna MD [facility] Date/Time: [facility] Results Received Date/Time: [facility] Reported Date/Time: Performed By: #### C MP, LIPD #### [facility] Default [address] [place] [address] Cholesterol in LDL [Mass/Vol] 145 mg/dL High [facility] Staff Physical Therapist Comment on above: Order Comment: [facility] performed at: [place], [address] [facility], [address] [place] [address], [phone], Community Mental Health Worker: Rodrigo Krishna MD [facility] Date/Time: [facility] Results Received Date/Time: [facility] Reported Date/Time: Result Comment: LDL ATP III CLASSIFICATION LDL less than 100 mg/dl Optimal LDL 100-129 mg/dl Near or above optimal LDL 130-159 Borderline high LDL 160-189 High LDL greater than 189 mg/dl Very High Performed By: #### C MP, LIPD #### [facility] Default [address] [place] [address] Result Comment: Refe rence range: <100 Desirable range <100 mg/dL for primary prevention; <70 mg/dL for patients with CHD or diabetic patients with > or = 2 CHD risk factors. LDL-C is now calculated using the Tiffanie calculation, which is a validated novel method providing better accuracy than the Friedewald equation in the estimation of LDL-C. Elio OBANDO et al. TRAMAINE. 2013;310(19): 6275-7145 (http://education.Wise Data.Media.Knip/faq/GVW016) Cholesterol in VLDL [Mass/Vol] 23 mg/dL Normal [facility] Staff Physical Therapist Comment on above: Order Comment: [facility] performed at: [place], [address] , [address] [place] [address], [phone], Community Mental Health Worker: Rodrigo Krishna MD [facility] Date/Time: [facility] Results Received Date/Time: [id number] [facility] Reported Date/Time: Performed By: #### C VAIBHAV, LIPD #### [facility] Default [address] [place] [address] Cholesterol.total/C holesterol in HDL [Mass ratio] 4.0 {ratio} Normal <5.0 [facility] Staff Physical Therapist Comment on above: Order Comment: [facility] performed at: [place], [address] [place] [address], [address] [place] [address], [address] [place] [address], Community Mental Health Worker: Rodrigo Krishna MD [facility] Date/Time: [facility] Results Received Date/Time: [facility] Reported Date/Time: Performed By: #### C VAIBHAV, LIPD #### [facility] Default [address] [place] [address] NON HDL CHOLESTEROL 168 mg/dL (calc) High <130 [place] Staff Physical Therapist Comment on above: Order Comment: [facility] performed at: [facility], [address] [place] [address], [address] [place] [address], [address] [place] [address], Community Mental Health Worker: Rodrigo Krishna MD [facility] Date/Time: [facility] Results Received Date/Time: [facility] Reported Date/Time: Result Comment: For patients with diabetes plus 1 major ASCVD risk factor, treating to a non-HDL-C goal of <100 mg/dL (LDL-C of <70 mg/dL) is considered a therapeutic option. Performed By: #### C VAIBHAV, LIPD #### [facility] Default [address] [place] [address] Triglyceride [Mass/Vol] 113 mg/dL Normal <150 [place] Staff Physical Therapist Comment on above: Order Comment: [facility] performed at: [facility], [address] [place] [address], [address] [place] [address], [address] [place] [address], Community Mental Health Worker: Rodrigo Krishna MD [facility] Date/Time: [facility] Results Received Date/Time: [facility] Reported Date/Time: Performed By: #### C MP, LIPD #### [facility] Default [address] [place] [address] Vital Signs Date Time Vital Sign Value Performing Clinician Sagar gusman 07-31-2024 14:59-0400 Body height 160 cm Ken Price MD Work Phone: [facility] 07-31-2024 14:59-0400 Body mass index (BMI) [Ratio] 38.44 kg/m2 Ken Price MD Work Phone: [facility] 07-31-2024 14:59-0400 Body weight 98.43 kg Ken Price MD Work Phone: [facility] Encounters Encounter Date Encounter Type Care Provider Facility Start: 09-05-2024 End: 09-05-2024 ambulatory KEN PRICE Not Available Start: 07-31-2024 End: 07-31-2024 Office outpatient visit 25 minutes Ken Price MD Work Phone: [facility] Comment on above: Recurrent major depr essive disorder, in partial remission (HCC) (CMS/HCC) (Primary Dx); Mixed anxiety depressive disorder; Persistent disorder of initiating or maintaining sleep; Thrush Start: 07-31-2024 End: 07-31-2024 ambulatory KEN PRICE Not Available Start: 07-31-2024 End: 07-31-2024 Bamboo flowsheet Ken Price MD Work Phone: [facility] Start: 07-31-2024 End: 07-31-2024 Bamboo flowsheet Ken Price MD Work Phone: [facility] Start: 07-01-2024 End: 07-01-2024 ambulatory KEN PRICE Not Available Start: 10-09-2023 End: 10-09-2023 ambulatory KEN PRICE Not Available Start: 06-21-2022 Encounter for genera l adult medical examination without abnormal findings DR DOCTOR DAMON [facility] Start: 06-20-2022 End: 06-21-[address] DOCTOR DAMON Facility: Start: 06-20-2022 End: 06-21-2022 Encounter for general adult medical examination without abnormal findings DR GARCIA [facility] Facility:H1 Procedures Date Procedure Procedure Detail Performing Clinician Start: 01-19-2023 Mammography Ken hoffman MD Work Phone: Plan of Treatment Date Care Activity Detail Author Start: 01-11-2028 Screening for malign ant neoplasm of cervix [facility] Start: 12-16-2024 Influenza vaccination Influenz a Vaccine (Season Ended) [facility] Start: 07-31-2024 End: 07-31-2024 Patient encounter procedure 07/31/2024 3:00 PM EDT Office Visit [facility] [address] [place] [id number] Ken Price MD [address] [facility] [address] [place] [address] Recurrent major depressive disorder, in partial remission (HCC) (CMS/HCC); Mixed anxiety depressive disorder; Persistent disorder of initiating or maintaining sleep [facility] Comment on above: Recurrent major depr essive disorder, in partial remission (HCC) (CMS/HCC); Mixed anxiety depressive disorder; Persistent disorder of initiating or maintaining sleep Start: 01-20-2024 Screening for malign ant neoplasm of breast Mammogram [facility] Start: 2002 Screening for malign ant neoplasm of cervix Pap Smear [facility] Payers Date Payer Category Payer Private Health Insurance ED [id number] 2023 Private Health Insurance [id number] 1981 Unknown [id number] 1981 Unknown [id number] 1981 Unknown [id number] 1981 Unknown [id number] 1981 Unknown [id number] 1959 Unknown [id number] Social History Date Type Detail Facility Start: 10-20-2022 Tobacco smoking status MIIS Never sm oked tobacco [facility] Start: 10-20-2022 Tobacco use and exposure Smoke less tobacco non-user [facility] Start: 07-01-2024 End: 07-31-2024 Alcoholic beverage intake Current drinker of alcohol (finding) [facility] Start: 10-19-2022 End: 11-14-2022 [facility] of Social function [facility] Start: 10-19-2022 End: 11-14-2022 Humiliation, Afraid, Rape, and Kick questionnaire [HARK] [facility] Within the last year , have you been afraid of your partner or ex-partner? No [facility] In a typical week, h ow many times do you talk on the telephone with family, friends, or neighbors? Patient declined [facility] Are you now , , , , never or living with a partner? [facility] How often to you hav e a drink containing alcohol? 2-4 times a month [facility] How many standard dr inks containing alcohol do you have on a typical day? 3 or 4 [facility] How often do you hav e 6 or more drinks on 1 occasion? Less than monthly [facility] Do you feel stress - tense, restless, nervous, or anxious, or unable to sleep at night because your mind is troubled all the time - these days [OSQ] To some extent [facility] (I/We) worried faizan er (my/our) food would run out before (I/we) got money to buy more. Never true [facility] Start: 11-13-2022 Education 21 [facility] Start: 1980 Sex assigned at Not on file [facility] History of Present illness Narrative 07-31-2024 Ken Price MD - 07/31/2024 3:00 PM EDT Note Date & Type Note Facility 07-31-2024 History of Presen t illness Narrative Images from the original note were not included. Patient ID: Bertrand Bliss is a 44 y.o. female who presents for: Needs Wellness and Mammogram Reviewed with her. Anxiety Patient is here for evaluation of anxiety. He/She has the following anxiety symptoms: insomnia. Onset of symptoms was approximately several years ago. Symptoms have been gradually improving since that time. He/She denies current suicidal and homicidal ideation. Family history significant for no psychiatric illness.Possible organic causes contributing are: none. Previous treatment includes medication cymbalta . He/She complains of the following medication side effects: tinnitus . Review of Systems Constitutional: Positive for fatigue. Negative for appetite change. Psychiatric/Behavioral: Positive for sleep disturbance. Negative for agitation, behavioral problems and suicidal ideas. The patient is not nervous/anxious. Objective Appearance: Well-groomed, in no acute distress Abnormal body movements: None Affect: Appropriate and appears to be full range, Mildly tearful. Attention: Good Attitude: Cooperative Degree of awareness of surroundings: Grossly within normal limits Impulse control: Appears to be good Insight: Appears to be good Fund of knowledge; adequate Judgment: Appears to be adequate Perceptual disorders: No perceptual disorders noted Psychomotor activity: Within normal range Speech: Clear, normal variability and rate Thought content: Unremarkable Upon examination of her oral cavity she has a fairly text book geographic looking tongue. It also has fissures and also has some white fuzziness especially around the central portion. No thrush noted on buccal membranes or posterior pharynx. Visit Vitals Ht 5' 3 Wt 217 lb BMI 38.44 kg/m OB Status Having periods Smoking Status Never BSA 2.09 m No Known Allergies Current Outpatient Medications on File Prior to Visit Medication Sig Dispense Refill hydrOXYzine HCl (Atarax) 25 MG tablet Take 25 mg by mouth every 6 (six) hours if needed for itching. loratadine (Claritin) 10 MG tablet Take 10 mg by mouth in the morning. omeprazole OTC (PriLOSEC OTC) 20 MG EC tablet Take 20 mg by mouth in the morning. Take before meals. Do not crush, chew, or split. . [DISCONTINUED] DULoxetine (Cymbalta) [address] capsule Do not crush or chew. Take 1 capsule in the AM for 2 weeks, then increase to 2 capsules in the AM 60 capsule 5 No current facility-administered medications on file prior to visit. 1. Recurrent major depressive disorder, in partial remission (HCC) ([facility]) (Primary) Chronic problem, stable, to goal. Overall doing well. In prescribing a renewal to their current medication, consideration of the following encompasses moderate decision making; the current prescriptions and supplements, the current allergies and medication intolerances, current medical conditions, and potential drug interactions. Any changes to risks, benefits, and reason for renewing their current medication due to the above were discussed. The patient was given a chance to ask questions today and all questions were answered. The patient is to contact us if any other questions arise or if any problems occur. (Utilizing the original guidelines or the 2020 office/outpatient code guidelines for selecting the level of E/M service, In both sets of guidelines, prescription drug management appears in the moderate medical decision making (MDM) row. Neither the original guidelines nor the new guidelines state that a new prescription or change is needed in order to credit prescription drug management) - venlafaxine XR (Effexor XR) 75 MG 24 hr capsule; Take 1 capsule (75 mg) by mouth Daily For 2 weeks and then 2 capsules daily. Do not crush or chew. Dispense: 45 capsule; Refill: 0 2. Mixed anxiety depressive disorder Chronic problem, stable, overall doing well and cross treated with the venlafaxine. 3. Persistent disorder of initiating or maintaining sleep Chronic problem that is better. She is sleeping fairly good most nights and will take an [id number] sleeping aid on occasion. 4. Thrush Upon discussion we have mutually agreed to trial of treatment. She understands if we are unable to eradicate this or she has a recurrent shortly thereafter she will need a further diagnostic workup. She has had this many years ago. She understands that she needs to minimize sugars and simple carbohydrates. She needs to brush her teeth and her tongue specifically after eating. We did discuss the most Dr. Vásquez geographical tongue is simply a normal variant. In the Integrative Medicine part of my practice we think it is secondary to yeast. In prescribing a new medication consideration of [...] with the adjustment in their medication. - clotrimazole (Mycelex) 10 MG mendy; Take 1 tablet (10 mg) by mouth in the morning and 1 tablet (10 mg) at noon and 1 tablet (10 mg) in the evening and 1 tablet (10 mg) before bedtime. Dispense: 120 Mendy; Refill: 0 documented in this encounter [facility] Evaluation note Note Date & Type Note Facility Evaluation note Diagnosis Recurrent major depressive disorder, in partial remission (HCC) ([facility]/HCC)- Primary Mixed anxiety depressive disorder Persistent disorder of initiating or maintaining sleep Thrush Candidiasis of mouth documented in this encounter [facility] Summary Purpose Family History No Family History Records FoundNo Family History Records FoundNo Family History Records Found Advance Directives No Advanced Directives Records FoundNo Advanced Directives Records FoundNo Advanced Directives Records Found Additional Source Comments INFORMATION SOURCE (unrecogn ized section and content) DATE CREATED AUTHOR 03/26/2021 [facility] dical Specialist DATE CREATED AUTHOR AUTHOR'S ORGANIZ ATION 06/22/2022 [facility] DATE CREATED AUTHOR AUTHOR'S ORGANIZ ATION 09/11/2024 [facility] dical Specialists EPIC Care Teams (unrecognized sec tion and content) Central Office Associate Relationship Specialty Start Date End Date Ken Price MD PCP - General Family Medicine 10/19/22 Central Office Associate Relationship Specialty Start Date End Date Ken Price MD PCP - General Family Medicine 10/19/22 Reason for Visit (unrecogniz ed section and content) Reason Comments Anxiety FOR RECORDS PERTAINING TO PATIENTS WHO ARE OR HAVE BEEN ENROLLED IN A CHEMICAL DEPENDENCY/SUBSTANCEABUSE PROGRAM, SOME INFORMATION MAY BE OMITTED. This clinical summary was aggregated from multiple sources. Caution should be exercised in using it in the provision of clinical care. This summary normalizes information from multiple sources, and as a consequence, information in this document may materially change the coding, format and clinical context of patient data. In addition, data may be omitted in some cases. CLINICAL DECISIONS SHOULD BE BASED ON THE PRIMARY CLINICAL RECORDS. [employer] provides no warranty or guarantee of the accuracy or completeness of information in this document.
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
[2024-09-12] MEDS: HYDRALAZINE HCL 20 MG/ML VIAL 10 MG IVP (17:44)
[2024-09-12 18:27] LABS: Basophils Absolute Auto 0.1 10^3/uL (0.0-0.1); Basophils Percent Auto 0.5 % (0.2-2.0); Eosinophils Absolute Auto 0.2 10^3/uL (0.0-0.7); Hematocrit 43.9 % (36.0-48.0); Hemoglobin 15.1 g/dL (12.0-16.0); Immature Granulocytes Abs Auto 0.03 10^3/uL (0.00-0.03); Immature Granulocytes Pct Auto 0.3 % (0.0-0.5); Lymphocytes Percent Auto 20.2 % (20.5-60.0); Mean Corpuscular HGB Conc 34.4 g/dL (29.9-35.2); Mean Corpuscular Hemoglobin 30.3 pg (26.7-34.0); Mean Platelet Volume 9.4 fL (9.5-13.5); Monocytes Absolute Auto 0.7 10^3/uL (0.3-0.8); Monocytes Percent Auto 6.6 % (1.7-12.0); Neutrophils Absolute Auto 7.1 10^3/uL (1.4-6.5); Neutrophils Percent Auto 70.4 % (43.0-75.0); Platelet Count 372 10^3/uL (150-450); Red Blood Count 4.99 10^6/uL (4.20-5.40); Red Cell Distribution Width 13.8 % (11.0-15.0)
[2024-09-12 18:36] LABS: Anion Gap 17.4; BUN Creatinine Ratio 16.9; Calcium 8.8 mg/dL (8.5-10.1); Carbon Dioxide 23.1 mmol/L (21.0-32.0); Chloride 101 mmol/L (98-107); Estimated GFR (African America >60 (>=60 mL/min/1.73m^2); Estimated GFR (Non-African Ame >60 (>=60 mL/min/1.73m^2); Glucose 95 mg/dL (74-106); Potassium 3.5 mmol/L (3.5-5.1); Sodium 138 mmol/L (136-145)
--- NOTE | 2024-09-12 18:44 | ECG_ITS ---
[facility] Test Date: 2024-09-12 Pat Name: BERTRAND ARZOLA Department: Room: - Gender: Female Pharmacy Tech Customer Service: : 1980 Requested By: 1030 Order Number: [id number] Reading MD: SUDHAKAR ROWLEY M.D. Measurements Intervals Alna Rate: 119 P: 79 LA: 138 QRS: 101 QRSD: 84 T: 27 QT: 326 QTc: 397 Interpretive Statements [address] abnormality 7100 Abnormal right axis deviation 9150 abnormal ECG No previous ECG available for comparison Electronically Signed On 09-12-2024 21:16:44 EDT by SUDHAKAR ROWLEY M.D.
[2024-09-12] MEDS: LORAZEPAM 1 MG TABLET PO (18:49)
[2024-09-12] MEDS: HYDRALAZINE HCL 20 MG/ML VIAL IVP (18:50)
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
[2024-09-12] MEDS: DIPHENHYDRAMINE HCL 50 MG/ML VIAL 25 MG IVP (19:46)
[2024-09-12] MEDS: KETOROLAC TROMETHAMINE 30 MG/ML VIAL 15 MG IVP (19:46)
[2024-09-12] MEDS: 0.9 % SODIUM CHLORIDE 1,000 ML 1000 ML IV (19:46)
[2024-09-12] MEDS: METOCLOPRAMIDE HCL 10 MG/2 ML VIAL IVP (19:46)
[2024-09-12] MEDS: ONDANSETRON PF 4 MG/2 ML VIAL IV (20:04)
[2024-09-12] MEDS: LORAZEPAM 0.5 MG TABLET PO (21:16)
== END 2024-09-12 21:23 | disposition home or self-care (01) ==
PROVIDERS: Emergency Medicine; Emergency Provider Emergency Medicine; PCP Family Medicine
DX: T76.21XA Adult sexual abuse, suspected, initial encounter (principal); R51.9 Headache, unspecified; Z63.5 Disruption of family by separation and divorce; I16.0 Hypertensive urgency
CPT/HCPCS: 36415; 80048; 85025; 93005; 96361; 96374; 96375; 96376; 99285; J0360; J1200; J1885; J2405; J2765